=== PATIENT | male | born 1965 | race Caucasian/White ===

== ENCOUNTER 2019-02-06 09:27 | Emergency (ER) | payer OTHER, SELFPAY ==
[2019-02-06 09:39] VITALS: BP 149/84; PULSE 87; RESP 18; TEMP 36.6; O2SAT 97
--- NOTE | 2019-02-06 11:16 | ED_ITS ---
HPI - Ear Problem <MARGARITA Moody - Last Filed: 02/06/19 21:41> General Chief complaint: Ear Stated complaint: ringing in right ear Time Seen by Provider: 02/06/19 11:04 Source: patient Mode of arrival: ambulatory Limitations: no limitations History of Present Illness HPI Narrative: This is a 53-year-old male, smoker, who presents to ED with chief complaining of right ear ringing for 2 days. States mildly decreased hearing on affected ear. Patient reports he is just coming off ship and he needs medical clearance to get back tissue. He works as an outside plant engineer on a ship and uses the ear protector as he is supposed to. He denies balance problem, ear pain, URI symptoms. He does not take medications currently. Patient had mild form of tinnitus about 20+ years ago which resolved. Patient had vertigo once about 8 years ago. Patient reports left-sided nasal congestion waiting in ED. Related Data Home Medications Medication Instructions Recorded Confirmed No Known Home Medications 02/06/19 02/06/19 Allergies Allergy/AdvReac Type Severity Reaction Status Date / Time No Known Drug Allergies Allergy Verified 02/06/19 09:40 Review of Systems <MARGARITA Moody - Last Filed: 02/06/19 21:41> Review of Systems ROS Unobtainable: All systems reviewed & are unremarkable except as noted in HPI and below PFSH <MARGARITA Moody - Last Filed: 02/06/19 21:41> Medical History Tinnitus (Acute) Vertigo (Acute) Surgical History H/O elbow surgery (Acute) Social History Smoking Status: Current every day smoker Social History Smoking Status: Current every day smoker Exam <MARGARITA Moody - Last Filed: 02/06/19 21:41> Narrative Exam Narrative: GEN: Alert, oriented x 3, well appearing and nourished, and in no acute distress. Head: Normal cephalic, atraumatic. No scalp or temporal tenderness, palpable ma ss or rash. EYES: Pupils are equal, round, and reactive to light and accommodation. Extraocular muscles are intact bilaterally. There is no subconjunctival hemorrhage, exudate and sclera non-icteric. ENT: Bilateral auditory canals and tympanic membranes clear. Hearing grossly intact. Tympanic membranes pearly chery with her light reflex. No pain with trach all palpation. Nose without bleeding, purulent discharge or deviation. Bilateral turbinates red and swollen. Facial sinuses nontender to palpate. Mucous membrane moist, no mucosal lesion. Throat without erythema, tonsillar hypertrophy or exudate. Uvula in midline, airway patent. Neck: Trachea in midline. No JVD, non-tender without lymphadenopathy. No masses or thyroid megaly. Supple, non-tender and no meningeal signs. CARDIAC: Normal regular rate and rhythm without murmurs, gallops, or rubs. No chest wall tenderness. No peripheral edema, cyanosis or pallor. Capillary refill is less than 2 seconds. RESPIRATORY: Lungs are cleat to auscultate bilaterally. No cough, wheezes, rales, or rhonchi. No stridor, respiratory distress, increase work of breathing, or accessary muscle used. ABD: Abdomen soft, nontender and non-distended. No guarding or rebound tenderness to palpate. Bowel sounds are normal in all 4 quadrants. There is no palpable masses or organomegaly. EXT: Full painless ROM of all extremities with no loss of sensation, strength, effusion or edema. SKIN: Warm, dry, normal color for patient. No erythema, lesions or rash over visible areas. BACK: Nontender without deformity or crepitance. No flank tenderness. NEUROLOGICAL: Alert and oriented to place, time and person. Sensation and motor function intact bilaterally. No facial droops, dysphasia. PSYCHIATRIC: Good judgement and reason, without hallucinations, abnormal affect or abnormal behaviors during the examination. Initial Vital Signs Initial Vital Signs: Vital Signs Temperature 97.8 F 02/06/19 09:39 Pulse Rate 87 02/06/19 09:39 Respiratory Rate 18 02/06/19 09:39 Blood Pressure 149/84 H 02/06/19 09:39 Pulse Oximetry 97 02/06/19 09:39 <Nika Lovelace, DO - Last Filed: 02/07/19 19:20> Initial Vital Signs Initial Vital Signs: Vital Signs Temperature 97.8 F 02/06/19 09:39 Pulse Rate 87 02/06/19 09:39 Respiratory Rate 18 02/06/19 09:39 Blood Pressure 149/84 H 02/06/19 09:39 Pulse Oximetry 97 02/06/19 09:39 Scores <MARGARITA Moody - Last Filed: 02/06/19 21:41> GCS Urich coma scale eye opening: Spontaneous Lina coma scale verbal response: Orientated Lina coma scale motor response: Obey commands Lina coma scale total score: 15 Course <MARGARITA Moody - Last Filed: 02/06/19 21:41> Vital Signs Vital signs: Vital Signs - 8 hr 02/06/19 09:39 Temperature 97.8 F Pulse Rate 87 Respiratory Rate 18 Blood Pressure 149/84 H Pulse Oximetry 97 <Nika Amadeo Lovelace - Last Filed: 02/07/19 19:20> Vital Signs Vital signs: Vital Signs - 8 hr 02/06/19 09:39 Temperature 97.8 F Pulse Rate 87 Respiratory Rate 18 Blood Pressure 149/84 H Pulse Oximetry 97 Medical Decision Making <MARGARITA Moody - Last Filed: 02/06/19 21:41> Differential Diagnosis Differential Diagnosis: Tinnitus, OM, OE Medical Records Medical records reviewed: Yes I reviewed the patient's medical records. MDM Narrative Medical decision making narrative: The patient presents today for medical clearance to get back on a ship after having tinnutis for 2 days. Physical exam is not consistent with otitis media or externa. Hearing grossly intact at this time. Noted nasal congestion in bilateral nares. Patient advised to use [id number] nasal Flonase for nasal irritation and congestion. Patient advised to follow up with his primary care physician if tinnitus persists for further evaluation and possible a referral to ENT specialist and audiogram. Re turn precautions were discussed with the patient and medical clearance documentation has been provided. The medical affairs specialist on that she was contacted and discussed the above. Patient agrees with treatment plan and no further questions were expressed at this time. Discharge Plan Departure Patient Disposition: Home Clinical Impression: Nasal congestion Tinnitus Qualifiers: Laterality: right Qualified Code(s): H93.11 - Tinnitus, right ear Discharge Date/Time: 02/06/19 11:37 Instructions: DI for Nasal Congestion, DI for Tinnitus Activity Restrictions/Additional Instructions: You have been diagnosed with [tinnitus and nasal congestion]. What to do: *Take your medications as directed. You will try [id number] Flonase for nasal congestion. You are released to to work with full fit for duty. I spoke with Mr. Joao yan at your ship informing these. *Follow up with your primary care provider in 2-3 days, call for an appointment. If the tinnitus continues to be recurring, a referral to ENT for further evaluation. Let them know you were seen in the ED and that we asked you to be seen in follow up. *Return to ED if you have any new, worsening, or concerning symptoms, such as [chest pain, breathing difficulty, dizziness, unable to tolerate fluids, worsening tinnitus, ear pain, fever, sinus pain, or any acute concerns]. Prescriptions: No Action No Known Home Medications RF: 0
[2019-02-06 11:34] VITALS: BP 110/77; PULSE 79; RESP 14; O2SAT 99
== END 2019-02-06 11:37 | disposition home or self-care (01) ==
PROVIDERS: Emergency Provider Nurse Practitioner Family
DX: R09.81 Nasal congestion (principal); H93.11 Tinnitus, right ear; Y99.0 Civilian activity done for income or pay
CPT/HCPCS: 99282

== ENCOUNTER 2021-09-10 07:48 | Emergency (ER) | payer OTHER, SELFPAY ==
[2021-09-10 07:59] VITALS: BP 160/77; PULSE 85; RESP 16; TEMP 36.4; O2SAT 97; BMI 32.5
--- NOTE | 2021-09-10 08:39 | ED_ITS ---
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 Patient states he noticed , 4 -5 days ago lump at the right pubic area just above the penis. He states he never noticed this before. States it got maybe a little bit larger but has not really changed in size. He has not any rash or skin changes otherwise. States not really painful to touch. He states it does not seem to come and go. He has not seen this in the past. He denies any testicular pain. No penile pain. No abdominal pain. No fevers chills or other symptoms. He denies other medical issues. No prior surgeries. No prior hernia repairs. No known drug allergies. Former smoker, occasional alcohol, no illicit. 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 Related Data Home Medications Medication Instructions Recorded Confirmed No Known Home Medications 02/06/19 02/06/19 Allergies Allergy/AdvReac Type Severity Reaction Status Date / Time No Known Drug Allergies Allergy Verified 09/10/21 07:59 Review of Systems Review of Systems ROS Unobtainable: All systems reviewed & are unremarkable except as noted in HPI and below Patient History Medical History (Updated 09/10/21 @ 10:25 by Nika Lovelace DO) Tinnitus Vertigo Surgical History H/O elbow surgery Social History Smoking Status: Former smoker Smoking Status: Former smoker alcohol intake frequency: 0-2 drinks per day Substance Use Type: does not use Exam Narrative Exam Narrative: GENERAL: Alert and oriented x three, male in mild distress. HEENT: Head normocephalic, atraumatic, EOMI, pupils reactive, face symmetric, moist mucous membranes NECK: Supple, full range of motion CARDIOVASCULAR: Regular rate and rhythm without murmurs, rubs or gallops. RESPIRATORY: Breath sounds equal bilaterally, no wheezes rales or rhonchi. ABDOMEN: Soft, nontender. Normoactive bowel sounds all 4 quadrants. No guarding or rebound, rigidity, no mass : No CVA tenderness. Male: normal external examination except for a small amount of swelling over the right pubic area but not really appreciated along the inguinal canal, patient has 3 small areas of induration that is firm and feel nodular that are very mildly tender within the soft tissue. They do not increase in size or change with cough, I am unable to reduce them. It is noted that patient has shaved the area recently, there is no warmth, erythema or other skin changes noted. Penile discharge or lesions, testicles non-tender, cremasteric reflex intact, no inguinal hernias noted. EXTREMITIES: Normal range of motion, no clubbing or edema. Neurovascularly intact NEUROLOGICAL: Cranial nerves II through XII grossly intact. Moving all extremities SKIN: Warm, dry, no petechiae, no rashes or lesions otherwise noted. Initial Vital Signs Initial Vital Signs: Vital Signs Temperature 97.5 F L 09/10/21 07:59 Pulse Rate 85 09/10/21 07:59 Respiratory Rate 16 09/10/21 07:59 Blood Pressure 160/77 H 09/10/21 07:59 Pulse Oximetry 97 09/10/21 07:59 Course Orders Ordered: ED Orders 09/10/21 08:46 US abdomen limited Stat Consultations Consultation #1: Spoke with Mirian Melendrez the medical care administrator and discussed findings today. Patient may return to duty. Vital Signs Vital signs: Vital Signs - 8 hr 09/10/21 07:59 09/10/21 10:34 Temperature 97.5 F L Pulse Rate 85 85 Respiratory Rate 16 18 Blood Pressure 160/77 H 133/80 Pulse Oximetry 97 98 MDM - Abdominal Pain Imaging Data soft tissue US: Radiologist's Impression: Launch?[address] [address] Ultrasound Report Signed Patient: Eugene Judge MR#: [id number] : 1965 Acct:[id number] Age/Sex: 56 / M Date of Service: 09/10/21 Loc: ED Accession Number: [id number] ?? Procedure: US abdomen limited Ordering Provider: Nika Lovelace D.O. PROCEDURE:? US ABDOMEN LIMITED ? INDICATIONS:? RIGHT INGUINAL LUMPS ? TECHNIQUE:? Real-time focused scanning was performed of the inguinal region, with image documentation.? ? COMPARISON:? None. ? FINDINGS:? Focused examination of right inguinal area shows no soft tissue mass or fluid collection.? No inguinal hernia is seen.? Benign lymph nodes are noted in right inguinal region measures 8 mm in length. ? IMPRESSION:? No abnormality is seen in right inguinal region. ? ? Dictated by: Shabbir Tan M.D. on 09/10/2021 at 9:58 ? ? Approved by: Shabbir Tan M.D. on 09/10/2021 at 9:59?? MDM Narrative Medical decision making narrative: This is a 56-year-old male who arrives with concern for swelling in his right inguinal/groin area. Patient is noted to have swelling in the suprapubic area just above but not really in the inguinal area there is some palpable firm nodules. No erythema, or changes consistent with infection. Patient does appear to have shaved recently which may have irritated the area but does not appear infected. Ultrasound was obtained and shows lymph nodes but maximum size is 8 mm. Discussed with patient needs monitoring I would not start antibiotics at this point. If lymph nodes are persistent for several weeks or in large but are nonpainful does need repeat evaluation possibly ultrasound or even biopsy if persisting. If he develops any signs of infection antibiotics would be appropriate. 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 Discharge Plan Departure Patient Disposition: Home Clinical Impression: Palpable lymph node Activity Restrictions/Additional Instructions: Your imaging today shows several lymph nodes the largest is measuring 8 mm but no other changes or signs of hernia. There is no mass or fluid collection otherwise noted. Continue to monitor the area if you notice warmth, redness you may be developing an infection but there is no sign of infection otherwise at this time. Continue to monitor the lymph nodes if they persist and do not resolve over the next several weeks or if they enlarge in size they should have repeat evaluation with ultrasound imaging and if they become significantly larger with no other changes they will need a biopsy at some point. This is not indicated if they resolve. Please return for fevers, redness, increasing swelling, new pain or tenderness, discharge from the skin or site, new abdominal pain or other new or concerning symptoms. Prescriptions: No Action No Known Home Medications 0RF
--- NOTE | 2021-09-10 08:46 | DI.US.S_ITS ---
PROCEDURE: US ABDOMEN LIMITED INDICATIONS: RIGHT INGUINAL LUMPS TECHNIQUE: Real-time focused scanning was performed of the inguinal region, with image documentation. COMPARISON: None. FINDINGS: Focused examination of right inguinal area shows no soft tissue mass or fluid collection. No inguinal hernia is seen. Benign lymph nodes are noted in right inguinal region measures 8 mm in length. IMPRESSION: No abnormality is seen in right inguinal region. Dictated by: Shabbir Tan M.D. on 09/10/2021 at 9:58 Approved by: Shabbir Tan M.D. on 09/10/2021 at 9:59
[2021-09-10 10:34] VITALS: BP 133/80; PULSE 85; RESP 18; O2SAT 98
== END 2021-09-10 10:35 | disposition home or self-care (01) ==
PROVIDERS: Emergency Provider Emergency Medicine
DX: R22.2 Localized swelling, mass and lump, trunk (principal); Y99.0 Civilian activity done for income or pay
CPT/HCPCS: 76705; 99283